=== PATIENT | female | born 1990 | race Caucasian/White ===

== ENCOUNTER 2017-01-12 16:23 | Emergency (ER) | payer OTHER ==
[~2017-01-12 16:23] MED LIST: ALBUTEROL0.09 MG/A1 INH; ALEVE220 MG PO; ANTIVERT 25MG #1 PAC PO; MULTI VITAMINS1 TAB PO; ZOFRAN4 M1 PO
--- NOTE | 2017-01-12 16:26 | ED SKIN/ALLERGY COMPLAINT ---
History of Present Illness General Chief Complaint: Allergy Symptoms Stated Complaint: ALLERGIC REACTION Source: patient, old records, EMS Exam Limitations: no limitations Vital Signs & Intake/Output Vital Signs & Intake/Output Vital Signs Date Time Temp Pulse Resp B/P B/P Pulse O2 O2 Flow FiO2 Mean Ox Delivery Rate 01/12 1836 93/52 01/12 1811 94 18 90/55 98 01/12 1649 Nasal 2.0L Cannula 01/12 1645 97 01/12 1632 98.7 105 20 142/89 98 Allergies Coded Allergies: peanut (Severe, SOB 12/23/15) tree nut (SOB 01/12/17) Reconcile Medications Albuterol Sulfate (Albuterol Sulfate Hfa) 0.09 MG/Actuation TRINI 2 PUFF INH Q4- 6 PRN PRN SHORTNESS OF BREATH 90 MCG PER PUFF Albuterol Sulfate (Proair Hfa) 90 MCG HFA.AER.AD 2 PUF INH Q4-6 PRN PRN WHEEZING Epinephrine (Epipen 2-Manoj) 0.3 MG/0.3 ML AUTO.INJCT 1 DOSE SQ ONCE PRN ANAPHYLAXIS Meclizine (Antivert) 25 MG PAC 1 TAB PO TID PRN VERTIGO Methylprednisolone. (Medrol) 4 MG TAB.DS.PK 1 DP PO AD ALLERGIC RXN 6 on day 1 then reduce by one tablet daily until gone Multivitamin (One Daily Multivitamin) 1 TAB TAB 1 TAB PO DAILY SUPPLEMENT ( Reported) Naproxen Sodium (Aleve) 220 MG TAB 1 TAB PO DAILY PAIN (Reported) Ondansetron (Zofran Odt) 4 MG ODT 1 TAB PO Q6HR PRN NAUSEA Triage Nurses Notes Reviewed? yes Onset: Abrupt Duration: hour(s): (1.5), better, constant Timing: single episode today Severity: moderate Severity Numbers: 8 Location: extremities Possible Factors: exposure to allergen (nuts in cereal) No Modifying Factors: none Associated Symptoms: chest tightness, palpitations, "fuzzy" sensation to tongue HPI: 26-year-old female presents emergency room for evaluation after she developed sudden onset of chest tightness generalized pruritus to her arms, and a "fuzzy" sensation to her tongue. Patient went to an urgent care and was administered Benadryl zyrtec dexamethasone and epi IM. On arrival patient reports she is feeling slightly improved. She reports one episode of anaphylaxis in the past. She denies abdominal pain nausea vomiting diarrhea. No difficulty swallowing. Patient denies any other modifying factors or associated symptoms otherwise (JUDSON VALLEJO) Past History Medical History Any Pertinent Medical History? see below for history Neurological: NONE EENT: NONE Cardiovascular: NONE Respiratory: asthma Gastrointestinal: NONE Hepatic: NONE Renal: NONE Musculoskeletal: NONE Psychiatric: anxiety, depression, patient has a history of overdose of over-the- counter Aleve in the suicidal attempt about a month ago. 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 No (JUDSON VALLEJO) Review of Systems Review of Systems Constitutional: Reports: see HPI. All Other Systems: Reviewed and Negative Comments Review of systems: See HPI, All other systems negative. Constitutional, no chills no fever, no malaise HEENT: No visual changes no sore throat no congestion Cardiovascular: No chest pain , no palpitation Skin: no rashes, no change in skin Respiratory: No dyspnea no cough no sputum GI: No nausea no vomiting, no diarrhea, no bloating/constipation : No dysuria No hematuria, Muscle skeletal: No joint pain, no joint swelling, no back pain, no neck pain, Neurologic: No numbness no headache Psych: No stress Heme/endocrine: No bruising no bleeding Immunology: No lymphadenopathy (JUDSON VALLEJO) Physical Exam Physical Exam General Appearance: well developed/nourished, alert, awake Comments: Well-developed well-nourished person in no acute distress Head/Face: Atraumatic, no maxillary/frontal sinus tenderness, no facial swelling Eyes: PERRL, EOMI, no conjunctival injection Ear:External auditory canal and Tympanic membranes clear, no erythema, no FB. Nose: atraumatic.Normal inspection: No bleeding, no septal hematoma Throat: Moist mucous membranes.Pharynx normal. No pharyngeal erythema/exudate seen. No stridor/drooling or assymetry. No swelling or edema. No tongue or lip swelling Neck: Supple, no lymphadenopathy, FROM Back: Nontender, no CVA tenderness. Full range of motion Cardiovascular: Regular rate and rhythms no murmurs rubs Respiratory: Chest nontender.There were no bony deformities, no asymmetry. No respiratory distress. Patient speaking in full complete sentences. Breath sounds clear to auscultation bilaterally: NO W/R/R Abdomen: Soft, nontender Extremity: No edema, full range of motion of extremities Neuro: Alert oriented x3, motor sensory normal, There were no obvious focal neurologic abnormalities. Skin: No appreciable rash on exposed skin, skin is warm and dry. no urticaria Psych: Mood and affect is normal, memory and judgment is normal. (JUDSON VALLEJO) Progress Differential Diagnosis: allergic reaction, anaphylaxis, angioedema Plan of Care: Current Medications Sig/Silke Start time Last Medication Dose Stop Time Status Admin Sodium Chloride 1,000 ML BOLUS ONE 01/12 1645 AC 01/12 (Normal Saline 0.9%) 01/12 1744 1646 Patient medicated with Benadryl 50 dexamethasone, and epi in route. IV fluids DuoNeb ordered case discussed with Dr. Sofia who evaluated the patient agrees with plan 01/12/2017 5:00:34 PM patient with noted improvement in breathing with DuoNeb will continue to monitor 01/12/2017 5:41:37 PM patient resting in no apparent distress at this time she has epi pens at home 01/12/2017 6:14:45 PM patient states that she wants to go home and now she will not stay for continued monitoring despite my recommendations Patient has been monitored for the past several hours repeat evaluation she is resting comfortably patient states she feels well and comfortable enough with going home I had an extensive conversation regarding need for close follow up with their primary care physician this week as well as return precautions. I answered all of their questions, they feel comfortable with the plan and follow- up care. I discussed the medications that they will receive with the patient. I gave them signs and symptoms that could indicate an adverse reaction. I have advised them to limit their activities until they can see how they respond to the medication. (JUDSON VALLEJO) Rhythm Strip: normal sinus rhythm (JUDSON VALLEJO) Departure Departure Time of Disposition: 1813 Disposition: HOME OR SELF CARE Condition: Stable Clinical Impression Primary Impression: Anaphylaxis Referrals: KIRK DE LEON DO (PCP/Family) Additional Instructions: Medrol Dosepak, PROair inhaler and epipen as directed. these were sent to [facility]. Benadryl every 8 hours as needed, follow up with your primary care physician return anytime sooner with any concerns Departure Forms: Customer Survey General Discharge Information Prescriptions: Current Visit Scripts Epinephrine (Epipen 2-Manoj) 1 DOSE SQ ONCE PRN ANAPHYLAXIS #1 PAC Methylprednisolone. (Medrol) 1 DP PO AD #1 DP 6 on day 1 then reduce by one tablet daily until gone Albuterol Sulfate (Proair Hfa) 2 PUF INH Q4-6 PRN PRN WHEEZING #1 INHAL (JUDSON VALLEJO) PA/SOAPING MACHINE BACK TENDER Co-Sign Statement Statement: ED Attending supervision documentation- [] I saw and evaluated the patient. I have also reviewed all the pertinent lab results and diagnostic results. I agree with the findings and the plan of care as documented in the PA's/SOAPING MACHINE BACK TENDER's documentation. [X] I have reviewed the ED Record and agree with the PA's/SOAPING MACHINE BACK TENDER's documentation. [] Additions or exceptions (if any) to the PAs/SOAPING MACHINE BACK TENDER's note and plan are summarized below: [] (DORIE MATUTE,SUBHA) Critical Care Note Critical Care Note Critical Care Time: 30-74 min (JUDSON VALLEJO)
[2017-01-12] MEDS ORDERED: MEDROL4 M2 PO (17:46)
[2017-01-12] MEDS ORDERED: EPIPEN 2-P0.3 MG/0.3 SQ (17:46)
[2017-01-12] MEDS ORDERED: PROAIR HFA8.5 GM INH (17:46)
[2017-01-12 18:36] VITALS: BP 93/52
== END 2017-01-12 18:38 ==
LOC: ERH 16:23
DX: T78.2XXA Anaphylactic shock, unspecified, initial encounter (principal)
CPT/HCPCS: 1263; 96360; 99291

== ENCOUNTER 2017-03-19 16:21 | Emergency (ER) | payer OTHER ==
[~2017-03-19] VITALS: Ht 167.6 cm; Wt 72.6 kg
[~2017-03-19 16:21] MED LIST changes: +EPIPEN 2-P0.3 MG/0.3 SQ; +MEDROL4 M2 PO; +PROAIR HFA8.5 GM INH
[2017-03-19 17:19] LABS: ABSOLUTE BASOPHIL COUNT 0.1 /CUMM (0.0-0.2); ABSOLUTE EOSINOPHIL COUNT 0.2 /CUMM (0.0-0.7); ABSOLUTE GRANULOCYTE CT 5.3 /CUMM (1.4-6.5); ABSOLUTE LYMPH COUNT 1.7 /CUMM (1.2-3.4); ABSOLUTE MONOCYTE COUNT 0.5 /CUMM (0.10-0.60); BASOPHIL % 0.8 % (0.0-2.0); EOSINOPHIL % 2.4 % (0-5); GRANULOCYTE % 67.9 % (42.2-75.2); HEMATOCRIT 39.9 % (37-47); MEAN CORPUSCULAR HGB 27.6 PG (27.0-31.0); MEAN CORPUSCULAR HGB CONC 32.5 G/DL (33.0-37.0); MEAN CORPUSCULAR VOLUME 85.2 FL (81.0-99.0); MEAN PLATELET VOLUME 8.1 FL (7.4-10.4); PLATELET COUNT 322 /CUMM (130-400); RBC DISTRIBUTION WIDTH 13.8 % (11.5-14.5); RED BLOOD CELL CT 4.68 /CUMM (4.20-5.40); WHITE BLOOD CELL COUNT 7.8 /CUMM (4.8-10.8)
--- NOTE | 2017-03-19 17:54 | ED CARDIAC/CP/PALPITATIONS ---
History of Present Illness General Chief Complaint: Chest Pain Stated Complaint: CP,SOB Source: patient Exam Limitations: no limitations Vital Signs & Intake/Output Vital Signs & Intake/Output Vital Signs Date Time Temp Pulse Resp B/P B/P Pulse O2 O2 Flow FiO2 Mean Ox Delivery Rate 03/19 1817 97 Room Air 03/19 1816 97.0 94 22 104/68 100 03/19 1815 98 03/19 1631 98.8 81 16 114/73 98 Room Air Allergies Coded Allergies: peanut (Severe, SOB, HIVES 03/19/17) shellfish derived (Intermediate, HIVES 03/19/17) milk (LACTOSE INTOLLERANCE 03/19/17) tree nut (SOB, HIVES 03/19/17) wheat (HIVES 03/19/17) Reconcile Medications Albuterol Sulfate (Proair Hfa) 90 MCG HFA.AER.AD 2 PUF INH Q4-6 PRN PRN WHEEZING Albuterol Sulfate 1.25 MG/3 ML VIAL.NEB 1 Vial INH/MONICA Q4-6 PRN sob Beclomethasone Dipropionate (QVAR) 40 MCG/ACTUATION AER.W.ADAP 1 PUF INH BID ASTHMA (Reported) Rinse mouth after Epinephrine (Epipen 2-Manoj) 0.3 MG/0.3 ML AUTO.INJCT 1 DOSE SQ ONCE PRN ANAPHYLAXIS Ergocalciferol (Vitamin D2) (Vitamin D2) 50,000 UNIT CAPSULE 1 CAP PO QFRI SUPPLEMENT (Reported) Fluticasone Propionate 50 MCG/ACTUATION SPRAY.SUSP 2 SPRAY NASB DAILY ALLERGIES (Reported) Indomethacin 25 MG CAPSULE 1 CAP PO TID PRN pain/inflammation with food Melatonin 5 MG TABLET 1 TAB PO QPM SUPPLEMENT (Reported) Montelukast Sodium 10 MG TABLET 1 TAB PO DAILY ALLERGIES (Reported) Multivitamin (Multi-Day Vitamins) 1 EACH TABLET 1 TAB PO DAILY SUPPLEMENT ( Reported) Triage Note: C/O CONSTANT CHEST PRESSURE SINCE 0, HEAVY WITH DIFF BREATHING RADIATES INTO LEFT SIDE WORSE WHEN LAYING DOWN AND WITH INSPIRATION. USED ALBUTEROL INH VP WITHOUT RELIEF AND ALEVE AT 0330, NONE SINCE. ENDORSES DRY COUGH. HX ANXIETY. EKG DONE IN [place] ON [place]RIVAL, APPEARS NORMAL SINUS WITHOUT ECTOPY. O2 98% RA. C/O NAUSEA, NO VOMITING. LAST BM YESTERDAY AND NORMAL. Triage Nurses Notes Reviewed? yes Onset: Gradual Duration: day(s): (1) Timing: recent history Quality/Severity: moderate Location: central Radiation: left chest Activities at Onset: AFTER CLEANING UNDER BED Prior Chest Pain/Card Workup: CP WITH ASTHMA IN PAST Modifying Factors: Worsens With: movement. : No Patient currently breastfeeds: No HPI: Patient is a 26-year-old female with newly diagnosed asthma presenting to the emergency department with chief complaint of shortness of breath and centralized chest pressure going on since 3 AM this morning. Patient reports that it started after she was cleaning underneath her bed. She is currently fasting for mormon purposes and stays up at night to eat. Denies any nausea or vomiting fevers or chills. Symptoms currently moderate. Symptoms worse when she lays down and better if she sits up and leans forward. Denies any recent congestion. She does report mild dry cough. Denies lower extremity swelling. No history of blood clots. Denies hemoptysis. Tried using her inhaler with some relief at home but symptoms returned after several minutes. No sick contacts. No sputum production. Denies abdominal pain. No urinary symptoms. She denies use of control pills. (DEANDRA MURRELL) Past History Travel History Traveled to [place] past 21 day No Medical History Any Pertinent Medical History? see below for history Neurological: NONE EENT: NONE Cardiovascular: NONE Respiratory: asthma Gastrointestinal: NONE Hepatic: NONE Renal: NONE Musculoskeletal: NONE Psychiatric: anxiety, depression, patient has a history of overdose of over-the- counter Aleve in the suicidal attempt about a month ago. 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 No (DEANDRA MURRELL) Review of Systems Review of Systems Constitutional: Reports: no symptoms. Comments Review of systems: See HPI, All other systems negative. Constitutional, no chills fever or weight loss HEENT: No visual changes no sore throat no congestion Cardiovascular: Nopalpitation , orthopnea or ankle swelling Skin, no jaundice no rashes Respiratory: No sputum or hemoptysis GI: No nausea no vomiting : No dysuria No hematuria Muscle skeletal: no back pain, no neck pain, Neurologic: No numbness no confusion, no headaches Psych: No stress anxiety or depression,. Heme/endocrine: No bruising no bleeding no polyuria or polydipsia Immunology: No splenectomy or history of AIDS (DEANDRA MURRELL) Physical Exam Physical Exam General Appearance: well developed/nourished, no apparent distress, alert, awake , comfortable Cardiovascular: regular rate/rhythm, edema Comments: Well-developed well-nourished person in no acute distress HEENT: Pupils equally round and reactive to light and accommodation. Nose is atraumatic. External auditory canal and Tympanic membranes clear. Pharynx normal. No swelling or edema. Neck: Supple, no lymphadenopathy, normal range of motion without pain or tenderness Back: Nontender, no CVA tenderness. Cardiovascular: Regular rate and rhythms no murmurs rubs or gallops, normal JVP Respiratory: Chest nontender. No respiratory distress.breath sounds slightly diminished to auscultation bilaterally at the bases. Abdomen: Soft, nontender nondistended, no appreciable organomegaly. Normal bowel sounds. No ascites, no rebound or guarding. Extremity: No edema, no calf tenderness to palpation, normal and equal pulses. Neuro: Alert oriented x3 Skin: No appreciable rash on exposed skin, skin is warm and dry. Psych: Mood and affect is normal, memory and judgment is normal. Core Measures ACS in differential dx? Yes Severe Sepsis Present: No Septic Shock Present: No (DEANDRA MURRELL) Progress Differential Diagnosis: AMI, costochondritis, musculoskeletal pain, myocarditis, pericarditis, ASTHMA EXACERBATION, BRONCHITIS, PNEUMONIA Plan of Care: Orders Procedure Date/time Status Add-on Test (ER Only) 03/19 180 Active Telemetry/Improvement Lead 03/19 180 Active HUMAN BETA HCG SCREEN 03/19 1703 Complete TROPONIN LEVEL 03/19 1659 Complete COMPREHENSIVE METABOLIC PANEL 03/19 1659 Complete CBC WITHOUT DIFFERENTIAL 03/19 165 Complete EKG 03/19 1622 Active Laboratory Tests 03/19/17 1703: Anion Gap 10, Estimated GFR > 60, BUN/Creatinine Ratio 11.7, Glucose 100 H, Calcium 9.1, Total Bilirubin 0.7, AST 17, ALT 32, Alkaline Phosphatase 67, Troponin I < 0.01, Total Protein 6.4, Albumin 4.0, Globulin 2.4, Albumin/ Globulin Ratio 1.7, Total Beta HCG NEGATIVE, CBC w Diff NO MAN DIFF REQ, RBC 4.68, MCV 85.2, MCH 27.6, RDW 13.8, MPV 8.1, Gran % 67.9, Lymphocytes % 21.9, Monocytes % 7.0, Eosinophils % 2.4, Basophils % 0.8, Absolute Granulocytes 5.3, Absolute Lymphocytes 1.7, Absolute Monocytes 0.5, Absolute Eosinophils 0.2, Absolute Basophils 0.1, PUBS MCHC 32.5 L Diagnostic Imaging: Viewed by Me: Radiology Read. Discussed w/RAD: Radiology Read. CXR Impression: no acute abnormality, no infiltrates, normal size heart, normal mediastinum Initial ED EKG: SINUS RHYTHM, 71 BPM, PROBABLE LEFT ATRIAL ABNORMALITY Comments: 03/19/2017 5:56:35 PM patient's low lungs are slightly diminished at the bases. EKG is normal sinus. Patient not on any control, PERC negative. CBC, CMP and troponin sent. Patient will be treated with breathing treatments and Toradol and will reassess after medications. 03/19/2017 7:46:16 PMPatient feeling much improved after IV Toradol and breathing treatment. Feels like she can take a deep breath at this time. They have troponin, EKG is normal sinus. No signs of diffuse ST elevation But this could be early pericarditis. Patient also treated with indomethacin. Discussed with Dr. Oconnell, agrees with plan. This and educated on signs and symptoms to return. All questions answered. Patient nontoxic. Vitals are stable. (LYNN BASS,DEANDRA) Departure Departure Time of Disposition: 1931 Disposition: HOME OR SELF CARE Condition: Stable Clinical Impression Primary Impression: Dyspnea Qualifiers: Dyspnea type: unspecified Qualified Code: R06.00 - Dyspnea, unspecified Secondary Impressions: Chest pain Qualifiers: Chest pain type: unspecified Qualified Code: R07.9 - Chest pain, unspecified Referrals: KIRK DE LEON DO (PCP/Family) Additional Instructions: Follow-up with your primary care physician call to make appointment. Use nebulizer machine and nebulizer treatment as prescribed. Take anti- inflammatories prescribed. Increase fluids. Return for worsening symptoms or concerns. Departure Forms: Customer Survey General Discharge Information Prescriptions: Current Visit Scripts Indomethacin 1 CAP PO TID PRN pain/inflammation #30 CAP with food Albuterol Sulfate 1 Vial INH/MONICA Q4-6 PRN sob #150 ML (DEANDRA MURRELL) PA/TRUST MANAGER Co-Sign Statement Statement: ED Attending supervision documentation- [] I saw and evaluated the patient. I have also reviewed all the pertinent lab results and diagnostic results. I agree with the findings and the plan of care as documented in the PA's/TRUST MANAGER's documentation. [X] I have reviewed the ED Record and agree with the PA's/TRUST MANAGER's documentation. [] Additions or exceptions (if any) to the PAs/TRUST MANAGER's note and plan are summarized below: [] (MUNA MATUTE,MANJEET Castano) Critical Care Note Critical Care Note Critical Care Time: non-applicable (DEANDRA MURRELL)
--- NOTE | 2017-03-19 18:02 | RADIOLOGY REPORT ---
EXAMINATION: XR CHEST CLINICAL INFORMATION: Shortness of breath. COMPARISON: Chest done on 04/12/2015. TECHNIQUE: 2 views of the chest were obtained. FINDINGS: Subcentimeter nodule is seen projecting over the mid part of the left lateral cardiac outline, seen best on the frontal projection appeared to be projecting posteriorly on the lateral view, appears stable since 04/12/2015, most consistent with benign pathology. The remainder of the lung field bilaterally appear clear. The cardiomediastinal silhouette is within normal limits. There is no pleural effusion present. The visualized upper abdomen is unremarkable. IMPRESSION: No acute cardiopulmonary disease.
[2017-03-19 18:16] VITALS: BP 104/68
[2017-03-19] MEDS ORDERED: FLUTICASONE PRO16 GM NASB (19:03)
[2017-03-19] MEDS ORDERED: MELATONIN5 M7 PO (19:06)
[2017-03-19] MEDS ORDERED: QVAR8.7 GM INH (19:07)
[2017-03-19] MEDS ORDERED: MONTELUKAST SOD10 M1 PO (19:07)
[2017-03-19] MEDS ORDERED: MULTI-DAY VITA1 EACH PO (19:07)
[2017-03-19] MEDS ORDERED: VITAMIN D250000 UNIT PO (19:07)
[2017-03-19] MEDS ORDERED: INDOMETHACIN25 M1 PO (19:37)
[2017-03-19] MEDS ORDERED: ALBUTEROL1.25 MG/1 INH/SOL (19:37)
== END 2017-03-19 19:47 ==
LOC: ERH 16:21
PROVIDERS: Emergency Medicine
DX: R06.00 Dyspnea, unspecified (principal); R07.89 Other chest pain
CPT/HCPCS: 1263; 93005; 93010; 96374; J1885

== ENCOUNTER 2017-04-05 01:06 | Emergency (ER) | payer OTHER ==
[~2017-04-05] VITALS: Ht 167.6 cm; Wt 65.8 kg
[~2017-04-05 01:06] MED LIST changes: +ALBUTEROL1.25 MG/1 INH/SOL; +FLUTICASONE PRO16 GM NASB; +INDOMETHACIN25 M1 PO; +MELATONIN5 M7 PO; +MONTELUKAST SOD10 M1 PO; +MULTI-DAY VITA1 EACH PO; +QVAR8.7 GM INH; +VITAMIN D250000 UNIT PO
--- NOTE | 2017-04-05 03:04 | ED ANKLE/FOOT INJURY COMPLAINT ---
History of Present Illness General Chief Complaint: Foot or Ankle Injury Stated Complaint: FALL, L ANKLE PAIN PER PT Source: patient Exam Limitations: no limitations Vital Signs & Intake/Output Vital Signs & Intake/Output Vital Signs Date Time Temp Pulse Resp B/P B/P Pulse O2 O2 Flow FiO2 Mean Ox Delivery Rate 04/054 97.6 80 18 118/74 97 Room Air 04/05 0258 97.6 83 18 123/76 97 Room Air Allergies Coded Allergies: peanut (Severe, SOB, HIVES 03/19/17) shellfish derived (Intermediate, HIVES 03/19/17) milk (LACTOSE INTOLLERANCE 03/19/17) tree nut (SOB, HIVES 03/19/17) wheat (HIVES 03/19/17) Reconcile Medications Albuterol Sulfate (Proair Hfa) 90 MCG HFA.AER.AD 2 PUF INH Q4-6 PRN PRN WHEEZING Albuterol Sulfate 1.25 MG/3 ML VIAL.NEB 1 Vial INH/MONICA Q4-6 PRN sob Beclomethasone Dipropionate (QVAR) 40 MCG/ACTUATION AER.W.ADAP 1 PUF INH BID ASTHMA (Reported) Rinse mouth after Epinephrine (Epipen 2-Manoj) 0.3 MG/0.3 ML AUTO.INJCT 1 DOSE SQ ONCE PRN ANAPHYLAXIS Ergocalciferol (Vitamin D2) (Vitamin D2) 50,000 UNIT CAPSULE 1 CAP PO QFRI SUPPLEMENT (Reported) Fluticasone Propionate 50 MCG/ACTUATION SPRAY.SUSP 2 SPRAY NASB DAILY ALLERGIES (Reported) Ibuprofen 800 MG TABLET 1 TAB PO TID PRN PAIN Indomethacin 25 MG CAPSULE 1 CAP PO TID PRN pain/inflammation with food Melatonin 5 MG TABLET 1 TAB PO QPM SUPPLEMENT (Reported) Montelukast Sodium 10 MG TABLET 1 TAB PO DAILY ALLERGIES (Reported) Multivitamin (Multi-Day Vitamins) 1 EACH TABLET 1 TAB PO DAILY SUPPLEMENT ( Reported) Triage Nurses Notes Reviewed? yes Occurred: just prior to arrival Duration: hour(s): (6) Timing: single episode today Severity: mild, moderate Pain/Injury Location: Left: Ankle. Method of Injury: twisted Modifying Factors: Worsens With: movement. : No Patient currently breastfeeds: No HPI: 26 year old female presents to the ER for chief complaint of left ankle swelling after twisting her ankle at 8 PM tonight. Unable to bear weight without pain. Positive tingling sensation over toes. She took one Aleve prior to arrival without relief. Past History Travel History Traveled to [place] past 21 day No Medical History Any Pertinent Medical History? see below for history Neurological: NONE EENT: NONE Cardiovascular: NONE Respiratory: asthma Gastrointestinal: NONE Hepatic: NONE Renal: NONE Musculoskeletal: NONE Psychiatric: anxiety, depression, patient has a history of overdose of over-the- counter Aleve in the suicidal attempt about a month ago. 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 No Review of Systems Review of Systems Constitutional: Denies: chills, fever. EENTM: Reports: no symptoms. Respiratory: Reports: no symptoms. Cardiovascular: Reports: no symptoms. GI: Reports: no symptoms. Genitourinary: Reports: no symptoms. Musculoskeletal: Reports: joint pain, joint swelling. Skin: Reports: no symptoms. Neurological/Psychological: Reports: tingling. Hematologic/Endocrine: Denies: bruising, bleeding, polyuria, polydipsia. Immunologic/Allergic: Denies: splenectomy. All Other Systems: Reviewed and Negative Physical Exam Physical Exam General Appearance: well developed/nourished, alert, awake, mild distress Head: atraumatic Eyes: Bilateral: PERRL, EOMI. Ears, Nose, Throat: normal pharynx, normal ENT inspection, hearing grossly normal Neck: normal inspection, supple Cardiovascular/Respiratory: regular rate/rhythm Back: normal inspection Leg/Knee/Thigh Left: normal range of motion, normal inspection Leg/Knee/Thigh Right: normal range of motion, normal inspection Ankle Left: soft tissue tenderness, swelling (lateral malleolus) Ankle Right: normal range of motion Foot Left: normal inspection, normal range of motion Foot Right: normal inspection, normal range of motion Neuro/Vascular: normal motor function, normal sensation Psychiatric: awake, alert, oriented x 3 Skin: intact, normal color, warm/dry Diagram Feet Left/Right: 1) TENDER TO PALPATION, MILD SWELLING Progress Differential Diagnosis: fracture, sprain Plan of Care: Orders Procedure Date/time Status Durable Medical Equipment 04/05 0412 Active URINE 04/05 0118 Complete Laboratory Tests 04/05/17 0210: Urine Test NEGATIVE Diagnostic Imaging: Viewed by Me: Radiology Read. Discussed w/RAD: Radiology Read. Comments: PATIENT: CARLINE KUMAR PRESENT AGE: 26 PATIENT ACCOUNT NO: [id number] : 88 LOCATION: [facility] ORDERING PHYSICIAN: SUBHA OSHEA MD SERVICE DATE: 04/05/17 EXAM TYPE: RAD - XRY-ANKLE 3 OR MORE VIEWS L EXAMINATION: XR ANKLE, LEFT CLINICAL INFORMATION: Left lateral malleolus pain after inversion injury. COMPARISON: None TECHNIQUE: AP, lateral, and mortise views of the left ankle. FINDINGS: No fracture or dislocation. The ankle mortise is congruent. No ankle joint effusion. The soft tissues are unremarkable. IMPRESSION: Normal left ankle. DICTATED BY: PANCHITO MATUTE,NOLAN DATE/TIME DICTATED:04/05/17348 TRAVEL AGENCY MANAGER:PHYLLIS DATE/TIME TRANSCRIBED:04/05/17348 CONFIDENTIAL, DO NOT COPY WITHOUT APPROPRIATE AUTHORIZATION. <Electronically signed in Other Vendor System> SIGNED BY: PANCHITO MATUTE,NOLAN 04/053 Departure Departure Time of Disposition: 403 Disposition: HOME OR SELF CARE Condition: Stable Clinical Impression Primary Impression: Left ankle sprain Referrals: KIRK DE LEON DO (PCP/Family) Additional Instructions: Ice, rest and elevate the left ankle. Motrin as directed. Follow-up with her doctor in the office. Return as needed. Departure Forms: Customer Survey General Discharge Information Prescriptions: Current Visit Scripts Ibuprofen 1 TAB PO TID PRN PAIN #20 TAB Procedures Splinting Location: LEFT ANKLE CASIE WRAP Pre-Proc Neuro Vasc Exam: normal Post-Proc Neuro Vasc Exam: normal
--- NOTE | 2017-04-05 03:53 | RADIOLOGY REPORT ---
EXAMINATION: XR ANKLE, LEFT CLINICAL INFORMATION: Left lateral malleolus pain after inversion injury. COMPARISON: None TECHNIQUE: AP, lateral, and mortise views of the left ankle. FINDINGS: No fracture or dislocation. The ankle mortise is congruent. No ankle joint effusion. The soft tissues are unremarkable. IMPRESSION: Normal left ankle.
[2017-04-05] MEDS ORDERED: IBUPROFEN800 M1 PO (04:04)
[2017-04-05 04:24] VITALS: BP 118/74
== END 2017-04-05 04:26 ==
LOC: ERH 01:06
DX: S93.402A Sprain of unspecified ligament of left ankle, initial encounter (principal); X58.XXXA Exposure to other specified factors, initial encounter; Y92.9 Unspecified place or not applicable; Y93.9 Activity, unspecified
CPT/HCPCS: 73610-LT; 81025